=== PATIENT | female | born 1960 | race Caucasian/White ===

== ENCOUNTER 2024-05-24 11:46 | Day surgery (SDC) | payer BC ==
[2024-05-24] MEDS: Lactated Ringers 1,000 ML IV SCH (11:57)
[2024-05-24] MEDS ORDERED: Midazolam 1 MG/ML 2 ML SDV ONE (12:35)
[2024-05-24] MEDS ORDERED: Flumazenil 0.1 MG/ML 10 ML MDV ONE (12:35)
[2024-05-24] MEDS ORDERED: fentaNYL 50 MCG/ML SDV ONE (12:35)
[2024-05-24] MEDS ORDERED: Ketamine 200 MG/20 ML MDV ONE ×2 (12:35)
[2024-05-24] MEDS ORDERED: Lidocaine 2% 20 ML MDV ONE (12:35)
[2024-05-24] MEDS ORDERED: Propofol 200 MG/20 ML SDV ONE (12:35)
== END 2024-05-24 13:35 | disposition home or self-care (01) ==
LOC: CC.SDS 11:46
PROVIDERS: ATTEND Family Medicine
DX: K29.50 Unspecified chronic gastritis without bleeding (principal); Z98.84 Bariatric surgery status
CPT/HCPCS: 00731; 87081; J2250; J2704; J3010; J3490; J7120